=== PATIENT | female | born 2005 | race Caucasian/White ===

== ENCOUNTER 2025-05-04 07:12 | Outpatient (OUT) | payer OTHER, SELFPAY ==
[2025-05-04 07:38] LABS: Hematocrit 39.8 % (36.0-48.0); Hemoglobin 13.6 g/dL (12.0-16.0); Immature Granulocytes Abs Auto 0.01 10^3/uL (0.00-0.03); Immature Granulocytes Pct Auto 0.2 % (0.0-0.5); Lymphocytes Absolute Auto 2.3 10^3/uL (1.2-3.8); Mean Corpuscular HGB Conc 34.2 g/dL (29.9-35.2); Mean Corpuscular Hemoglobin 30.6 pg (26.7-34.0); Mean Corpuscular Volume 89.4 fL (81.0-99.0); Platelet Count 318 10^3/uL (150-450); Red Blood Count 4.45 10^6/uL (4.20-5.40); White Blood Count 6.4 10^3/uL (4.0-11.0)
[2025-05-04 07:40] LABS: Glucose Urine UA NEGATIVE (NEGATIVE)
[2025-05-04 08:13] LABS: Alanine Aminotransferase 26 U/L (14-59); Albumin Globulin Ratio 1.1; Albumin Level 3.9 g/dL (3.4-5.0); Alkaline Phosphatase 64 U/L (46-116); Anion Gap 12.0; Aspartate Amino Transferase 25 U/L (15-37); Blood Urea Nitrogen 18.0 mg/dL (6.4-19.3); Calcium 8.8 mg/dL (8.5-10.1); Carbon Dioxide 28.7 mmol/L (21.0-32.0); Chloride 104 mmol/L (98-107); Cholesterol 207 mg/dL (104-227); Estimated GFR (African America >60 (>=60 mL/min/1.73m^2); Estimated GFR (Non-African Ame >60 (>=60 mL/min/1.73m^2); Globulin 3.6 g/dL; Glucose 99 mg/dL (74-106); HDL Cholesterol 74 mg/dL (29-69); Potassium 3.7 mmol/L (3.5-5.1); Sodium 141 mmol/L (136-145); Thyroid Stimulating Hormone 1.432 uIU/mL (0.516-4.130); Total Protein 7.5 g/dL (6.4-8.2); Triglycerides 79 mg/dL (53-208); VLDL CHOLESTEROL 15.8 mg/dL
== END 2025-05-04 07:13 | disposition home or self-care (01) ==
LOC: LAB 07:12
PROVIDERS: Family Provider Family Medicine; PCP Family Medicine; Visit Provider Family Medicine
DX: Z00.00 Encounter for general adult medical examination without abnormal findings (principal)
CPT/HCPCS: 36415; 80053; 80061; 81003; 83036; 84439; 84443; 85025